=== PATIENT | male | born 1945 | race American Indian/Alaskan Native ===

== ENCOUNTER 2018-01-30 12:00 | Day surgery (SDC) | payer MEDICARE ==
[~2018-01-30 12:00] MED LIST: ANCEF/STERILE WATER 2 GM/20 ML IV NR
--- NOTE | 2018-01-30 13:47 | Anesthesia Day of Surgery ---
Anesthesia Day of Surgery - Day of Surgery Patient Examined: Yes Patient H&P Reviewed: Yes Patient is NPO: Yes
--- NOTE | 2018-01-30 13:47 | Anesthesia Consultation ---
Anesthesia Consult and Med Hx Date of service: 01/30/18 - Airway Anesthetic Teeth Evaluation: Edentulous ROM Head & Neck: Adequate Mental/Hyoid Distance: Adequate Mallampati Class: Class II Intubation Access Assessment: Probably Good - Pulmonary Exam CTA: Yes - Cardiac Exam Cardiac Exam: RRR - Pre-Operative Health Status ASA Pre-Surgery Classification: ASA3 Proposed Anesthetic Plan: General - Pulmonary Hx Smoking: No Hx Respiratory Symptoms: No Hx Sleep Apnea: No (THOMAS PRE SCREEN HIGH RISK) - Cardiovascular System Hx Hypertension: Yes Hx Heart Attack/AMI: No - Central Nervous System CVA: Yes (10yrs ago; occasional residual right leg weakness) - Gastrointestinal Hx Gastroesophageal Reflux Disease: No - Endocrine Hx Renal Disease: No Hx Liver Disease: No Hx Insulin Dependent Diabetes: No Hx Thyroid Disease: No - Other Systems Hx Cancer: No - Additional Comments Anesthesia Medical History Comments: No prior anesthetics; no FHx anesthetic complications. Stopped plavix 2 weeks ago.
[2018-01-30] MEDS ORDERED: LACTATED RINGERS 1,000 ML IV SCH (14:00)
[2018-01-30] MEDS ORDERED: VERSED IV NR (14:00)
[2018-01-30] MEDS ORDERED: DIPRIVAN 10 MG/ML IV ONE (15:04)
[2018-01-30] MEDS ORDERED: XYLOCAINE MPF 2% ONE (15:04)
[2018-01-30] MEDS ORDERED: SUBLIMAZE ONE (15:04)
[2018-01-30] MEDS ORDERED: DECADRON ONE (15:32)
[2018-01-30] MEDS ORDERED: ZOFRAN ONE (15:32)
[2018-01-30] MEDS ORDERED: OMNIPAQUE (300 MG) IV ONE (15:41)
--- NOTE | 2018-01-30 16:25 | Short Stay Summary ---
Short Stay Documentation Date of service: 01/30/18 - History H&P: obtained from office - Allergies and Medications Current Medications: Allergies tramadol [From Ultram] Adverse Reaction (Verified 01/30/18 13:26) Nausea Home Medications Medication Instructions Recorded Confirmed Last Taken Type Aspirin [Aspir-Low] 81 mg PO DAILY 01/22/18 01/30/18 2 Weeks Ago History ~01/16/18 AtorvaSTATin [Lipitor] 40 mg PO QHS 01/22/18 01/22/18 01/30/18 09:00 History Clopidogrel Bisulfate [Plavix] 75 mg PO DAILY 01/22/18 01/30/18 01/20/18 History amLODIPine [Norvasc] 10 mg PO DAILY 01/22/18 01/22/18 01/30/18 09:00 History traMADol [Ultram] 50 mg PO Q4HR PRN 01/22/18 01/30/18 01/19/18 History Active Medications Cefazolin Sodium (Ancef/Sterile Water 2 Gm/20 Ml) 2 gm IV PREOP NR Stop: 01/30/18 23:01 Fentanyl (Sublimaze) 50 mcg IV Q10MIN PRN PRN Reason: Pain , Severe (7-10) Stop: 01/31/18 06:00 Lactated Ringer's (Lactated Ringers) 1,000 mls @ 100 mls/hr IV DIRECT PARI Last Admin: 01/30/18 13:50 Dose: 100 mls/hr Midazolam HCl (Versed) 2 mg IV PREOP NR Stop: 01/30/18 23:59 Last Admin: 01/30/18 13:53 Dose: 2 mg - Brief post op/procedure progress note Date of procedure: 01/30/18 Pre-op diagnosis: hematuria, bladder mass Post-op diagnosis: same Procedure: cysto, left rpg, TURBT - moderate size - 4cm, cystogram Anesthesia: GETA Surgeon: KAMILLE SHEPARD Estimated blood loss: 50-100ml Pathology: list (rt sided bladder tumor) Condition: stable - Hospital course Hospital course: ultram, norco, macrobid on chart home with 3way mcmahon to bag/ side port plugged - Disposition Condition at discharge: Stable Disposition: DC-01 TO HOME OR SELFCARE Short Stay Discharge Plan Follow up with: TERESA MENJIVAR MD [Primary Care Provider] - 7 Days
[2018-01-30] MEDS: SUBLIMAZE IV PRN ×2 (16:35→17:10)
[2018-01-30 17:52] VITALS: BP 127/74
--- NOTE | 2018-01-30 17:57 | Operative Report ---
PREOPERATIVE DIAGNOSES: Gross hematuria, bladder mass. POSTOPERATIVE DIAGNOSES: Gross hematuria, bladder mass, 4 cm bladder tumor, right side wall. PROCEDURE: Cystoscopy, left retrograde pyelogram, transurethral resection of bladder tumor. SURGEON: Shadi Payan MD ANESTHESIA: General. ESTIMATED BLOOD LOSS: Minimal. FLUIDS: Crystalloid. COMPLICATIONS: No complications. INDICATIONS: This patient is a 72-year-old gentleman presented with gross hematuria. The patient states he had been [facility], [facility]. Last time he saw his urologist was approximately [address] of abdomen and pelvis revealed an enlarged prostate, possible bladder mass, mild right hydronephrosis, positive degenerative joint disease of the lumbar spine. Discussed options. The patient and his agreed to proceed with surgical intervention. DESCRIPTION OF PROCEDURE: The patient was taken to the operative suite, placed in a supine position. After adequate general anesthesia, placed in a dorsal lithotomy position, prepped and draped in a sterile fashion. Pancystourethroscopy was performed with a 22-Mongolian Storz cystoscope, no urethral abnormalities. His prostate displayed bilobar (kissing lobes) bilobar prostate of obstruction. Diffuse trabeculation. Left ureteral orifice could be appreciated. Right could not be visualized due to bladder tumor. Left retrograde pyelogram was obtained with an 8 Mongolian Ross catheter and 8 mL of contrast. Obvious J hooking of the lower ureter was appreciated. No filling defects or obstruction. Next, using a 24-Mongolian resectoscope and loop with the cutting and coag, 120 and 60 transurethral resection of the bladder tumor was performed. This was getting thin in trying to remove the tumor and may have had a small perforation. Therefore, at that point, adequate fulguration was performed. A 22-Mongolian 3-way catheter was placed. Cystogram, no obvious leak could be appreciated. No extravasation could be appreciated. Catheter was irrigated. No clots. Rectal exam revealed an enlarged prostate. He was extubated and taken to recovery room. He will go home with Pena catheter 3-way Pena catheter to the leg bag. The patient may require intravesical therapy. Macrobid, Ultram, and Hayes were left on the chart. JOB# [id number] [facility]
--- NOTE | 2018-01-31 08:02 | Fluoroscopy Report ---
FLUOROSCOPY RETROGRADE UROGRAPHY FLUOROSCOPY CYSTOGRAM STATIC-OR History: Bladder tumor. Gross hematuria. Findings: Fluoroscopy was provided by radiology during retrograde urography and cystogram by the urologist. 7 fluoroscopic images were captured. The cystogram images demonstrate a filling defect along the right side of the dome and right lateral wall which probably represents a bladder tumor or blood clot. Prominent prostate indentation is noted. No extravasation of contrast or reflux is identified. The left retrograde pyelogram was performed which was normal. The right retrograde pyelogram could not be performed secondary to bladder tumor obscuring the orifice. Please correlate with the procedural report as needed. Impression: Bladder tumor. Normal left retrograde pyelogram.
== END 2018-01-30 18:45 | disposition home or self-care (01) ==
LOC: OR 12:00
PROVIDERS: ATTEND Urology
DX: D49.4 Neoplasm of unspecified behavior of bladder (principal); R31.0 Gross hematuria; N32.89 Other specified disorders of bladder; I10 Essential (primary) hypertension; E78.00 Pure hypercholesterolemia, unspecified; Z86.73 Personal history of transient ischemic attack (TIA), and cerebral infarction without residual deficits; Z88.8 Allergy status to other drugs, medicaments and biological substances; Z79.82 Long term (current) use of aspirin; Z79.899 Other long term (current) drug therapy; Z79.01 Long term (current) use of anticoagulants; Z82.49 Family history of ischemic heart disease and other diseases of the circulatory system
CPT/HCPCS: 52235; 74420; 74430; J0690; J1100; J2250; J2405; J2704; J3010; J7120; Q9967; 88307; C1758

== ENCOUNTER 2018-02-01 04:52 | Emergency (ER) | payer MEDICARE ==
[2018-02-01 07:37] LABS: Basophils % (Auto) 0.3 % (0.0-1.8); Eosinophils % (Auto) 0.1 % (0.0-4.3); Hematocrit 37.5 % (35.5-45.6); Hemoglobin 12.6 gm/dl (11.8-15.2); Lymphocytes # (Auto) 1.4 K/mm3 (1.2-5.4); Lymphocytes % (Auto) 14.1 % (13.4-35.0); Mean Corpuscular HGB Conc 34 % (32-34); Mean Corpuscular Hemoglobin 30 pg (28-32); Mean Corpuscular Volume 90 fl (84-94); Monocytes # (Auto) 0.9 K/mm3 (0.0-0.8); Monocytes % (Auto) 9.3 % (0.0-7.3); Platelet Count 234 K/mm3 (140-440); Red Blood Count 4.15 M/mm3 (3.65-5.03); Red Cell Distribution Width 14.5 % (13.2-15.2)
[2018-02-01 07:45] LABS: INR 1.14 (0.87-1.13)
[2018-02-01 07:46] LABS: Partial Thromboplastin Time 29.6 Sec. (24.2-36.6)
[2018-02-01 07:49] LABS: BUN/Creatinine Ratio 12; Blood Urea Nitrogen 16 mg/dL (9-20); Calcium 9.4 mg/dL (8.4-10.2); Hemolysis Index 7
[2018-02-01 07:53] LABS: Alanine Aminotransferase 13 units/L (7-56); Albumin 3.9 g/dL (3.9-5)
[2018-02-01 07:56] LABS: Bilirubin,Direct < 0.2 mg/dL (0-0.2)
[2018-02-01] MEDS ORDERED: NACL 0.9% IR SCH (08:00)
--- NOTE | 2018-02-01 08:42 | Emergency Department Report ---
ED General Adult HPI - General Chief complaint: Urogenital-Male Stated complaint: CATHETER NEEDS RE-LINE Time Seen by Provider: 02/01/18 07:18 Source: patient, family Mode of arrival: Ambulatory Limitations: No Limitations - History of Present Illness Initial comments: Patient had cystoscopy and biopsy of an apparent bladder tumor on Sunday. Patient was concerned because he was leaking about his Pena catheter which is a 3 way 22 Maltese. He also stated that he was leaking at his back which was probably due to the fact that it was improperly clamped. I spoke to Dr. Payan. He told me that the patient has already been informed that he would have leakage about his Pena catheter and that this should be anticipated. Patient is not complaining of any abdominal pain. His Pena has been draining. He does have some gross hematuria but no clots in the bag. Associated Symptoms: denies other symptoms - Related Data Home Medications Medication Instructions Recorded Confirmed Last Taken Aspirin [Aspir-Low] 81 mg PO DAILY 01/22/18 01/30/18 2 Weeks Ago ~01/16/18 AtorvaSTATin [Lipitor] 40 mg PO QHS 01/22/18 01/22/18 01/30/18 09:00 Clopidogrel Bisulfate [Plavix] 75 mg PO DAILY 01/22/18 01/30/18 01/20/18 amLODIPine [Norvasc] 10 mg PO DAILY 01/22/18 01/22/18 01/30/18 09:00 traMADol [Ultram] 50 mg PO Q4HR PRN 01/22/18 01/30/18 01/19/18 Allergies Allergy/AdvReac Type Severity Reaction Status Date / Time tramadol [From Ultram] AdvReac Nausea Verified 01/30/18 13:26 ED Review of Systems ROS: Stated complaint: CATHETER NEEDS RE-LINE Other details as noted in HPI Constitutional: denies: chills, fever Eyes: denies: eye pain, eye discharge, vision change ENT: denies: ear pain, throat pain Respiratory: denies: cough, shortness of breath, wheezing Cardiovascular: denies: chest pain, palpitations Endocrine: no symptoms reported Gastrointestinal: denies: abdominal pain, nausea, diarrhea Genitourinary: denies: urgency, dysuria Musculoskeletal: denies: back pain, joint swelling, arthralgia Skin: denies: rash, lesions Neurological: denies: headache, paresthesias Psychiatric: denies: anxiety, depression Hematological/Lymphatic: denies: easy bleeding, easy bruising ED Past Medical Hx - Past Medical History Previous Medical History?: Yes Hx Hypertension: Yes Hx Heart Attack/AMI: No Hx Liver Disease: No Hx Renal Disease: No Hx HIV: No Additional medical history: high cholesterol - Surgical History Past Surgical History?: No - Social History Smoking Status: Never Smoker Substance Use Type: None - Medications Home Medications: Home Medications Medication Instructions Recorded Confirmed Last Taken Type Aspirin [Aspir-Low] 81 mg PO DAILY 01/22/18 01/30/18 2 Weeks Ago History ~01/16/18 AtorvaSTATin [Lipitor] 40 mg PO QHS 01/22/18 01/22/18 01/30/18 09:00 History Clopidogrel Bisulfate [Plavix] 75 mg PO DAILY 01/22/18 01/30/18 01/20/18 History amLODIPine [Norvasc] 10 mg PO DAILY 01/22/18 01/22/18 01/30/18 09:00 History traMADol [Ultram] 50 mg PO Q4HR PRN 01/22/18 01/30/18 01/19/18 History ED Physical Exam - General Limitations: Physical Limitation General appearance: alert, in no apparent distress - Head Head exam: Present: atraumatic, normocephalic - Eye Eye exam: Present: normal appearance. Absent: scleral icterus - ENT ENT exam: Present: mucous membranes moist - Neck Neck exam: Present: normal inspection. Absent: tenderness, meningismus - Respiratory Respiratory exam: Present: normal lung sounds bilaterally. Absent: respiratory distress - Cardiovascular Cardiovascular Exam: Present: regular rate, normal rhythm. Absent: systolic murmur, diastolic murmur, rubs, gallop - GI/Abdominal GI/Abdominal exam: Present: soft, normal bowel sounds. Absent: distended, tenderness, guarding, rebound, rigid - Rectal Rectal exam: Present: deferred - exam: Present: other (catheter did have some leaking onto undergarments but no active drainage) - Extremities Exam Extremities exam: Present: normal inspection - Back Exam Back exam: Present: normal inspection - Neurological Exam Neurological exam: Present: alert, oriented X3, other (no acute focal deficit) - Psychiatric Psychiatric exam: Present: normal affect, normal mood - Skin Skin exam: Present: warm, dry, intact, normal color. Absent: rash ED Course Vital Signs 02/01/18 02/01/18 04:59 07:05 Temperature 97.7 F Pulse Rate 95 H Respiratory 14 20 Rate Blood Pressure 141/101 O2 Sat by Pulse 99 Oximetry - Reevaluation(s) Reevaluation #1: We will perform a Flower's drip on the patient. His labs look fine. His urine will be cultured. He is appropriate for follow-up with Dr. Payan thereafter. The catheter will remain in place. 02/01/18 08:54 ED Medical Decision Making - Lab Data Result diagrams: 02/01/18 07:23 02/01/18 07:23 Laboratory Results - last 24 hr 02/01/18 02/01/18 02/01/18 07:23 07:23 07:23 WBC 9.7 RBC 4.15 Hgb 12.6 Hct 37.5 MCV 90 MCH 30 MCHC 34 RDW 14.5 Plt Count 234 Lymph % (Auto) 14.1 [place] % (Auto) 9.3 H Eos % (Auto) 0.1 Baso % (Auto) 0.3 Lymph # 1.4 [place] # 0.9 H Eos # 0.0 Baso # 0.0 Seg Neutrophils % 76.2 H Seg Neutrophils # 7.4 PT 15.1 H INR 1.14 H APTT 29.6 Sodium 142 Potassium 5.0 Chloride 105.9 Carbon Dioxide 24 Anion Gap 17 BUN 16 Creatinine 1.3 Estimated GFR > 60 BUN/Creatinine Ratio 12 Glucose 142 H Calcium 9.4 Total Bilirubin Direct Bilirubin Indirect Bilirubin AST ALT Alkaline Phosphatase Total Protein Albumin Albumin/Globulin Ratio 02/01/18 07:23 WBC RBC Hgb Hct MCV MCH MCHC RDW Plt Count Lymph % (Auto) [place] % (Auto) Eos % (Auto) Baso % (Auto) Lymph # [place] # Eos # Baso # Seg Neutrophils % Seg Neutrophils # PT INR APTT Sodium Potassium Chloride Carbon Dioxide Anion Gap BUN Creatinine Estimated GFR BUN/Creatinine Ratio Glucose Calcium Total Bilirubin 0.40 Direct Bilirubin < 0.2 Indirect Bilirubin 0.2 AST 16 ALT 13 Alkaline Phosphatase 56 Total Protein 7.1 Albumin 3.9 Albumin/Globulin Ratio 1.2 Critical care attestation.: If time is entered above; I have spent that time in minutes in the direct care of this critically ill patient, excluding procedure time. ED Disposition Clinical Impression: Hematuria, gross, Bladder tumor Disposition: DC- TO HOME OR SELFCARE Is pt being admited?: No Does the pt Need Aspirin: No Condition: Stable Instructions: Acute Hematuria (ED), Transurethral Resection of Bladder Tumors ( ED) Referrals: PRIMARY CARE,MD [Primary Care Provider] - 3-5 Days KAMILLE PAYAN MD [Staff Physician] - as needed (As directed by Dr. Payan) Time of Disposition: 11:00
[2018-02-01 09:32] LABS: Bilirubin,Urine NEG (Negative); Blood,Urine LG (Negative); Color,Urine Red (Yellow); Urobilinogen,Urine < 2.0 mg/dL (<2.0)
[2018-02-01 09:35] LABS: RBC,Urine > 182.0 /HPF (0.0-6.0); WBC,Urine > 182.0 /HPF (0.0-6.0)
[2018-02-01 13:59] VITALS: BP 138/92
== END 2018-02-01 12:50 | disposition home or self-care (01) ==
LOC: ED 04:52
DX: T83.038A Leakage of other urinary catheter, initial encounter (principal); I10 Essential (primary) hypertension; E78.00 Pure hypercholesterolemia, unspecified; Z79.82 Long term (current) use of aspirin; Z88.5 Allergy status to narcotic agent
CPT/HCPCS: 36415; 51702; 80048; 80074; 81001; 85025; 85610; 85730; 87086; 99283; A4217

== ENCOUNTER 2018-02-19 18:56 | Emergency (ER) | payer MEDICARE ==
--- NOTE | 2018-02-19 21:40 | Emergency Department Report ---
ED Male HPI - General Stated complaint: CATHETHER REPLACEMENT Time Seen by Provider: 02/19/18 21:32 - History of Present Illness Initial comments: Patient is 73 years old male with history of urinary bladder cancer followed by Dr. Payan. Patient presented to the ER accompanied by his as a chief complain that there is no urine output since he left his urologist office this afternoon. Patient stated that the injected a chemotherapy through his Pena catheter and since then there is no urine output. Patient denied any fever, nausea or vomiting. No other complaints. MD Complaint: other (Pena catheter not working.) - Related Data Home Medications Medication Instructions Recorded Confirmed Last Taken Aspirin [Aspir-Low] 81 mg PO DAILY 01/22/18 02/19/18 2 Weeks Ago ~01/16/18 AtorvaSTATin [Lipitor] 40 mg PO QHS 01/22/18 02/19/18 01/30/18 09:00 Clopidogrel Bisulfate [Plavix] 75 mg PO DAILY 01/22/18 02/19/18 01/20/18 amLODIPine [Norvasc] 10 mg PO DAILY 01/22/18 02/19/18 01/30/18 09:00 Allergies Allergy/AdvReac Type Severity Reaction Status Date / Time tramadol [From Ultram] AdvReac Nausea Verified 01/30/18 13:26 ED Review of Systems ROS: Stated complaint: CATHETHER REPLACEMENT Other details as noted in HPI Comment: All other systems reviewed and negative Constitutional: denies: chills, fever Cardiovascular: denies: chest pain, palpitations Gastrointestinal: denies: abdominal pain, nausea, vomiting Genitourinary: denies: hematuria, testicular pain, testicular mass Neurological: denies: headache, weakness ED Past Medical Hx - Past Medical History Hx Hypertension: Yes Hx Heart Attack/AMI: No Hx Liver Disease: No Hx Renal Disease: No Hx HIV: No Additional medical history: high cholesterol - Social History Smoking Status: Never Smoker Substance Use Type: None - Medications Home Medications: Home Medications Medication Instructions Recorded Confirmed Last Taken Type Aspirin [Aspir-Low] 81 mg PO DAILY 01/22/18 02/19/18 2 Weeks Ago History ~01/16/18 AtorvaSTATin [Lipitor] 40 mg PO QHS 01/22/18 02/19/18 01/30/18 09:00 History Clopidogrel Bisulfate [Plavix] 75 mg PO DAILY 01/22/18 02/19/18 01/20/18 History amLODIPine [Norvasc] 10 mg PO DAILY 01/22/18 02/19/18 01/30/18 09:00 History ED Physical Exam - General Limitations: No Limitations General appearance: alert, in no apparent distress - Head Head exam: Present: atraumatic, normocephalic, normal inspection - Eye Eye exam: Present: normal appearance - ENT ENT exam: Present: normal exam, normal orophraynx, mucous membranes moist - Neck Neck exam: Present: normal inspection, full ROM. Absent: tenderness, meningismus, lymphadenopathy, thyromegaly - Respiratory Respiratory exam: Present: normal lung sounds bilaterally. Absent: respiratory distress, wheezes, rales, rhonchi, accessory muscle use, decreased breath sounds , prolonged expiratory - Cardiovascular Cardiovascular Exam: Present: regular rate, normal rhythm, normal heart sounds - GI/Abdominal GI/Abdominal exam: Present: soft, normal bowel sounds. Absent: tenderness, guarding, rebound, rigid, organomegaly, mass, bruit, pulsatile mass, hernia - exam: Present: other (Pena catheter in place.). Absent: testicular tenderness, urethral discharge, scrotal swelling, circumcision - Extremities Exam Extremities exam: Present: normal inspection, full ROM, normal capillary refill. Absent: pedal edema, calf tenderness - Neurological Exam Neurological exam: Present: alert, oriented X3, CN II-XII intact, normal gait, reflexes normal - Skin Skin exam: Present: warm, intact, normal color ED Course Vital Signs 02/19/18 02/19/18 19:50 21:55 Temperature 98.9 F 98.2 F Pulse Rate 84 78 Respiratory 18 15 Rate Blood Pressure 140/85 Blood Pressure 135/80 [Left] O2 Sat by Pulse 98 98 Oximetry ED Medical Decision Making - Lab Data Result diagrams: 02/19/18 21:49 02/19/18 21:49 - Medical Decision Making Mr Rothman is 73 years old male with history of urinary bladder cancer followed by Dr. Payan. Patient presented to the ER accompanied by his as a chief complain that there is no urine output since he left his urologist office this afternoon. Patient stated that the injected a chemotherapy through his Pena catheter and since then there is no urine output. Patient denied any fever, nausea or vomiting. No other complaints. Bladder scan showed a 114 mL. Patient received 1 L of normal saline. Patient is leaking urine around the catheter. This and creatinine is normal. I discussed the patient is Dr. Boss from urology, he advised to remove the catheter and have the patient follow-up with his dr Payan, this morning at 8: 30 AM. Critical care attestation.: If time is entered above; I have spent that time in minutes in the direct care of this critically ill patient, excluding procedure time. ED Disposition Clinical Impression: Pena catheter problem, Urine retention Disposition: DC- TO HOME OR SELFCARE Is pt being admited?: No Condition: Stable Instructions: Pena Catheter Insertion (ED), Urinary Leg Bag (GEN) Referrals: PRIMARY CARE, [Primary Care Provider] - 3-5 Days KAMILLE PAYAN MD [Staff Physician] - 24 Hours (today at 08:30 AM)
[2018-02-19] MEDS ORDERED: NACL 0.9% 1000 ML 1,000 ML IV ONE ×2 (21:43→23:47)
[2018-02-19 22:12] LABS: BUN/Creatinine Ratio 11; Blood Urea Nitrogen 14 mg/dL (9-20); Hemolysis Index 5
[2018-02-19 22:17] LABS: Eosinophils % (Auto) 0.5 % (0.0-4.3); Hematocrit 34.5 % (35.5-45.6); Hemoglobin 11.6 gm/dl (11.8-15.2); Lymphocytes # (Auto) 1.1 K/mm3 (1.2-5.4); Lymphocytes % (Auto) 19.5 % (13.4-35.0); Mean Corpuscular HGB Conc 34 % (32-34); Mean Corpuscular Hemoglobin 30 pg (28-32); Mean Corpuscular Volume 90 fl (84-94); Monocytes # (Auto) 0.4 K/mm3 (0.0-0.8); Monocytes % (Auto) 7.2 % (0.0-7.3); Platelet Count 275 K/mm3 (140-440); Red Blood Count 3.84 M/mm3 (3.65-5.03); Red Cell Distribution Width 14.1 % (13.2-15.2)
[2018-02-19] MEDS ORDERED: SUBLIMAZE IV ONE (22:39)
[2018-02-19] MEDS ORDERED: ZOFRAN IV ONE (22:39)
[2018-02-20] MEDS ORDERED: NORCO 5/325 PO ONE (00:12)
[2018-02-20 01:47] VITALS: BP 138/77
== END 2018-02-20 01:15 | disposition home or self-care (01) ==
LOC: ED 18:56
DX: T83.098A Other mechanical complication of other urinary catheter, initial encounter (principal); R33.9 Retention of urine, unspecified; I10 Essential (primary) hypertension; E78.00 Pure hypercholesterolemia, unspecified; Z88.6 Allergy status to analgesic agent
CPT/HCPCS: 36415; 51702; 80048; 85025; 96374; 96375; 99283; J2405; J3010; J7030; 96361